=== PATIENT | female | born 1970 | race Caucasian/White ===

== ENCOUNTER 2017-02-20 15:01 | Emergency (ER) | payer OTHER ==
[~2017-02-20] VITALS: Ht 160 cm; Wt 71.2 kg
--- NOTE | 2017-02-20 15:03 | NUR ---
DR SRINIVASAN AT BEDSIDE FOR EVAL
--- NOTE | 2017-02-20 15:04 | NUR ---
PT [facility] FROM LOCAL CLINIC FOR ASTHMA EXACERBATION. GIVEN ALBUTEROL IN FIELD VERBALIZED RELIEF. STATES WORSENING SOB X 5 DAYS. PLACED ON MONITOR. VSS. 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
[2017-02-20] MEDS ORDERED: TERBUTALINE SULFATE 1 MG/ML VIAL ONE (15:09)
[2017-02-20] MEDS ORDERED: IV SET PRIMARY PUMP SET 1 EA INFUS.SET MC ONE (15:10)
[2017-02-20] MEDS ORDERED: methylPREDNISolone SOD SUCC 125 MG/2ML VIAL ONE (15:10)
[2017-02-20] MEDS ORDERED: Magnesium 1GM/D5W 100ML PREMIX 200 ML IV ONE (15:10)
[2017-02-20] MEDS ORDERED: ALBUTEROL FS 2.5 MG/3 ML VIAL.NEB ONE (15:11)
[2017-02-20] MEDS ORDERED: IPRATROPIUM NEB FS 0.5 MG/2.5 ML AMPUL.NEB ONE (15:11)
[2017-02-20] MEDS: Magnesium 1GM/D5W 100ML PREMIX 100 ML IV SCH ×2 (15:18→16:19)
[2017-02-20] MEDS ORDERED: IPRATROPIUM NEB FS 0.5 MG/2.5 ML AMPUL.NEB NEB ONE (15:30)
[2017-02-20] MEDS ORDERED: TERBUTALINE SULFATE 1 MG/ML VIAL SQ ONE (15:30)
[2017-02-20] MEDS ORDERED: ALBUTEROL FS 2.5 MG/0.5 ML VIAL.NEB NEB ONE (15:30)
[2017-02-20] MEDS ORDERED: methylPREDNISolone SOD SUCC 125 MG/2ML VIAL IV ONE (15:30)
--- NOTE | 2017-02-20 17:30 | NUR ---
IV removed. Catheter intact and site benign. Pressure and 4x4 applied to site. No bleeding noted.
--- NOTE | 2017-02-20 17:45 | NUR ---
DPatient discharged to home in stable condition. Written and verbal after care instructions given. Patient verbalizes understanding of instruction.
[2017-02-20 18:00] VITALS: BP 132/88
== END 2017-02-20 18:01 | disposition home or self-care (01) ==
LOC: ER 15:03
DX: J45.901 Unspecified asthma with (acute) exacerbation (principal)
CPT/HCPCS: 93005; 94644; 96365; 96372; 96375; 99285; A4606; J2930; J3105; J3475; Z7610